=== PATIENT | female | born 1950 | race Caucasian/White ===

== ENCOUNTER 2016-05-16 10:38 | Emergency (ER) | payer OTHER ==
[2016-05-16 11:15] VITALS: BP 129/63; PULSE 72; RESP 18; TEMP 98.1; O2SAT 95
--- NOTE | 2016-05-16 11:39 | UCPHY ---
[id number]/16/17 11:10 HPI/ROS: HPI: 65-year-old female presents to urgent care with chief concern left 4th finger laceration that occurred 1 hour prior to arrival at home when she tripped over her grandson, began to fall, and tried to catch herself on the wall. Lacerated the palmar surface of the left 4th finger. Denies weakness, numbness, or tingling of the extremity. Denies decreased range of motion. She is up-to-date with tetanus. Right-hand dominant. Unable to remove the ring on her left 4th finger. ROS:10 point review of systems is negative other than as stated in HPI (Liliana Tariq) Physical Exam: Vital signs stable, reviewed by me General: Awake, alert, calm, cooperative. No acute distress. Head: Normalocephalic. Atraumatic. EENT: PERRLA. EOMI. CV: Radial pulses 2+ bilaterally. Brisk cap refill all extremities. Neuro: Alert. Oriented x 3. Speech clear. Sensation intact all extremities, specifically sensation intact distal to laceration prior to local anesthesia Skin: Skin warm, dry. There is a 1.5 cm laceration located palmar surface, left 4th finger, distal phalanx Musculoskeletal: Strength 5+ all extremities. Range of motion full at a.m. CP J , PIPJ, DIPJ. (Liliana Tariq) Constitutional: Initial Vital Signs Temperature (C) 36.7 C 05/16/16 11:09 Heart Rate 72 05/16/16 11:09 Respiratory Rate 18 05/16/16 11:09 Blood Pressure 129/63 H 05/16/16 11:09 O2 Sat (%) 95 05/16/16 11:09 O2 Delivery Mode Room Air Allergies/Adverse Reactions: Sulfa (Sulfonamide Antibiotics) [Sulfa(Sulfonamide Antibiotics)] Allergy (Mild, Verified 05/16/16 11:06) Rash Home Medications: Medication Instructions Recorded DULoxetine [Cymbalta 60 MG (RX)] 60 mg PO DAILY 11/26/11 Triamterene/Hydrochlorothiazid 1 each PO 11/26/11 [Triamterene-Hctz 37.5-25 mg Cp] Lipitor 05/16/16 Medical Decision Making Procedures: After verbal consent was obtained and risks and benefits explained, the laceration was anesthetized using a total of 3 ml of 0.5% Marcaine. Lac then irrigated per protocol by maintenance mechanic technician. Under sterile procedure, the wound was explored to its base with a gloved finger and no foreign body was identified. No deep structure identified. Wound was then draped and sterile procedure followed during laceration repair. Wound was repaired using # for, 5-0 Prolene sutures. After repair, laceration cleansed, bacitracin and sterile dressing applied. Procedure performed by myself. Procedure was simple. Pt tolerated the procedure well. (Liliana Tariq) ED Course/Re-evaluation: [facility] [employer] supervision Physician documentation: The patient was evaluated and managed by the nurse practitioner. My co- signature indicates that I have reviewed this chart and I agree with the findings and plan of care as documented. I am the secondary supervising physician. (Alexey Murray) Departure - Departure Disposition: Home, Routine, Self-Care Clinical Impression: Finger laceration Condition: Good Instructions: Finger Laceration (ED) Additional Instructions: Plan: We saw you here today at the ED with a laceration of your left 4th finger. We closed the wound with 4 sutures. We'll have you leave the dressing on for 24 hours then remove it and begin cleaning the area daily by letting warm, soapy water run over it, but do not scrub or rub the site. Remove dried blood with a Q -tip dipped in water. Apply a thin layer of antibiotic ointment. Continue this routine daily. Recheck urgently if the area develops redness, swelling, increased pain, or red streaking above the wound, or if you develop a fever. Return to the emergency department in 7-10 days for suture removal. Return prior to then if any issues or concerns. Referrals: Zee Chavez MD [Primary Care Provider] - As per Instructions - PQRS PQRS Measurement: 134: Depression screening and followup, PRIME MD-PHQ2 (12 years and older) Over the last 2 weeks, how often have you been bothered by any of the following problems? 1. Feeling down, depressed, or hopeless? 2. Little interest or pleasure in doing things? Patient answered no to both 1 and 2 130: Documentation of medications. Reviewed all patient medications, doses, route and frequency. 226: Do you smoke? No 47: 65 and older: Advanced care planning. Patient has advanced directive. 51: 18 years old and older with diagnosis of COPD, spirometry performance. Patient has no history of COPD 52: 18 years old and older with COPD and symptoms of COPD or FEV1<60% no history of COPD (Liliana Tariq)
== END 2016-05-16 12:05 | disposition home or self-care (01) ==
LOC: CED 10:38
PROC: 0HQGXZZ Repair Left Hand Skin, External Approach (ICD-10-PCS; principal; 2016-05-16)
DX: S61.215A Laceration without foreign body of left ring finger without damage to nail, initial encounter (principal); W03.XXXA Other fall on same level due to collision with another person, initial encounter; W22.8XXA Striking against or struck by other objects, initial encounter
CPT/HCPCS: 12001; G0463